=== PATIENT | female | born 1985 | race Caucasian/White ===

== ENCOUNTER 2016-06-17 11:46 | Emergency (ER) | payer MEDICARE, OTHER ==
--- NOTE | 2016-06-17 13:10 | ED ---
General Adult HPI - General Chief complaint: Extremity Injury, Upper Stated complaint: Finger injury/infection Time Seen by Provider: 06/17/16 13:00 Source: patient, RN notes reviewed Mode of arrival: ambulatory Limitations: no limitations - History of Present Illness Initial comments: This is a 30-year-old female presents with right index finger pain 4 days. Patient states she fell on her steps 4 days ago and her right index finger bent backwards. Patient states she's been having pain and noticed some increased erythema and purulent drainage 2 days ago. Patient states it also hurts to move the right index finger. Patient states she has a history of MRSA. Patient states she is up-to-date on her tetanus shot. Patient denies any chance of being . Patient denies any numbness/tingling/weakness. Patient denies any recent fever, chills, shortness breath, chest pain, abdominal pain, nausea/vomiting/diarrhea, back pain, hematuria, headache, or visual changes, or any other complaints. - Related Data Previous Rx's Medication Instructions Recorded Albuterol Inhaler [Ventolin Hfa 1 - 2 puff INHALATION Q4-6H PRN #1 10/15/14 Inhaler] inhaler Azithromycin [Zithromax Z-pack] 0 mg PO DIRECTED #6 tab 10/15/14 predniSONE 60 mg PO DAILY 5 Days 10/15/14 Clindamycin [Cleocin] 450 mg PO Q6H 10 Days 06/17/16 Ibuprofen [Motrin] 400 mg PO Q6HR 7 Days 06/17/16 traMADol HCL [Ultram] 50 mg PO Q6HR #12 tab 06/17/16 Allergies Allergy/AdvReac Type Severity Reaction Status Date / Time sulfamethoxazole Allergy Anaphylaxis Verified 06/17/16 12:03 [From ] trimethoprim [From ] Allergy Anaphylaxis Verified 06/17/16 12:03 Review of Systems ROS Statement: Those systems with pertinent positive or pertinent negative responses have been documented in the HPI. ROS Other: All systems not noted in ROS Statement are negative. Past Medical History Past Medical History: Seizure Disorder Additional Past Medical History / Comment(s): last seizure 8 years ago History of Any Multi-Drug Resistant Organisms: None Reported Past Surgical History: No Surgical Hx Reported Past Anesthesia/Blood Transfusion Reactions: No Reported Reaction Past Psychological History: No Psychological Hx Reported Smoking Status: Current every day smoker Past Alcohol Use History: None Reported Past Drug Use History: None Reported General Exam - General Exam Comments Initial Comments: General: The patient is awake and alert, in no distress, and does not appear acutely ill. Neck: The neck is supple, there is no tenderness or JVD. Cardiovascular: There is a regular rate and rhythm. No murmur, rub or gallop is appreciated. Respiratory: Lungs are clear to auscultation, respirations are non-labored, breath sounds are equal. No wheezes, stridor, rales, or rhonchi. Musculoskeletal: Tenderness to palpation to the distal aspect of the right second digit with localized erythema, swelling and purulent drainage coming from what appears to be a puncture wound. Patient has limited range of motion at the DIP joint of the right index finger due to pain and swelling. Patient has strength 5/5 and Sensation intact. Radial pulses 2+ bilaterally. Capillary refill is normal at less than 2 seconds. Neurological: A&O x 3. CN II-XII intact, There are no obvious motor or sensory deficits. Coordination appears grossly intact. Speech is normal. Skin: Skin is warm and dry and no rashes or lesions are noted. Psychiatric: Normal mood and affect. Limitations: no limitations Course Vital Signs 06/17/16 12:01 Temperature 97.8 F Pulse Rate 95 Respiratory 20 Rate Blood Pressure 143/77 O2 Sat by Pulse 100 Oximetry Procedures - Procedures Initial comment: Procedure: Incision and drainage The skin overlying the abscess was cleansed with normal saline and anesthetized with 1% lidocaine without epinephrine via digital block. A #11 scalpel was then used to incise the abscess. Some purulent material was then extracted from the lesion. Wound culture obtained. Gauze dressing placed on top , The patient tolerated the procedure well. Medical Decision Making - Medical Decision Making This is an 30 female presents with right index finger pain 4 days. On physical exam patient is afebrile EC. There is tenderness to palpation to the distal aspect of the right second digit with localized erythema, swelling and purulent drainage coming from what appears to be a puncture wound. Patient has limited range of motion at the DIP joint of the right index finger due to pain and swelling. Patient has strength 5/5 and Sensation intact. Radial pulses 2+ bilaterally. Capillary refill is normal at less than 2 seconds. An x-ray of the right hand was done and reviewed showing: #1 no acute osseous abnormality right hand. #2 minimal soft tissue injury tip of the index finger. Reported by Dr. Nieves. The skin overlying the abscess was cleansed with normal saline and anesthetized with 1% lidocaine without epinephrine via digital block. A #11 scalpel was then used to incise the abscess. Some purulent material was then extracted from the lesion. Wound culture obtained. Gauze dressing placed on top , The patient tolerated the procedure well. I discussed warm compresses and warm soaks with the patient. I discussed Motrin and Tylenol for pain. I discussed tramadol her breakthrough pain. I discussed that patient was put on a course of antibiotics. I discussed return parameters. Discussed that patient should follow up with PCP in one to 2 days or return to the EC for any worsening symptoms or for any further concerns. Patient was receptive to this plan and patient will be discharged home. Disposition Clinical Impression: Abscess Disposition: HOME SELF-CARE Condition: Good Instructions: Abscess (ED) Additional Instructions: Please finish entire course of antibiotics. Please use Motrin and Tylenol as needed for pain. Please use tramadol for breakthrough pain. Please use warm soaks and warm compresses to the finger and keep a gauze dressing over it. May apply Neosporin to the area as well.Please use medication as discussed. Please follow-up with family doctor in the next 2 days of symptoms have not improved. Please return to emergency room if the symptoms increase or worsen or for any other concerns. Prescriptions: Clindamycin [Cleocin] 450 mg PO Q6H 10 Days Ibuprofen [Motrin] 400 mg PO Q6HR 7 Days traMADol HCL [Ultram] 50 mg PO Q6HR #12 tab Referrals: Bernadette Coulter MD [Primary Care Provider] - 1-2 days
--- NOTE | 2016-06-17 13:26 | XR ---
EXAMINATION TYPE: XR hand complete RT DATE OF EXAM: 06/17/2016 1:21 PM COMPARISON: NONE HISTORY: Bent fingers backwards open wound second digit fall, pain TECHNIQUE: 3 views right hand FINDINGS: Soft tissue injuries over the tip of the index finger. Osseous structures appear intact. Sherri int spaces are preserved. Soft tissues otherwise normal. No radiopaque foreign bodies are evident. IMPRESSION: 1. No acute osseous abnormality right hand. 2. Minimal soft tissue injury tip of the index finger
[2016-06-17 14:22] VITALS: BP 126/71; PULSE 96; RESP 14; TEMP 97.3
== END 2016-06-17 14:22 | disposition home or self-care (01) ==
LOC: EC 11:46
DX: L02.511 Cutaneous abscess of right hand (principal); W10.9XXA Fall (on) (from) unspecified stairs and steps, initial encounter; F17.200 Nicotine dependence, unspecified, uncomplicated; Z88.2 Allergy status to sulfonamides; Z79.52 Long term (current) use of systemic steroids; Z86.14 Personal history of Methicillin resistant Staphylococcus aureus infection
CPT/HCPCS: 26010; 87070; 87077; 87186; 87205; 99283

== ENCOUNTER → 2017-10-31 | Outpatient (CLI) | payer MEDICARE, OTHER ==
[2017-10-31 10:18] LABS: Basophils # (A) 0.1 k/uL (0-0.2); Basophils % (A) 1 %; Eosinophils # (A) 0.3 k/uL (0-0.7); Eosinophils % (A) 4 %; HCT 45.7 % (34.0-46.0); HGB 15.1 gm/dL (11.4-16.0); Lymphocytes # (A) 2.8 k/uL (1.0-4.8); Lymphocytes % (A) 32 %; MCH 31.4 pg (25.0-35.0); MCHC 33.1 g/dL (31.0-37.0); MCV 94.9 fL (80.0-100.0); Mean Platelet Volume 7.1; Monocytes # (A) 0.5 k/uL (0-1.0); Monocytes % (A) 5 %; Neutrophils # (A) 5.1 k/uL (1.3-7.7); Neutrophils % (A) 58 %; Platelet Count 295 k/uL (150-450); RBC 4.81 m/uL (3.80-5.40); RDW 12.4 % (11.5-15.5); WBC 8.8 k/uL (3.8-10.6)
[2017-10-31 10:38] LABS: ALT 32 U/L (9-52); AST 20 U/L (14-36); Alkaline Phosphatase 62 U/L (38-126); Anion Gap 8 mmol/L; Blood Urea Nitrogen 4 mg/dL (7-17); Calcium 9.2 mg/dL (8.4-10.2); Carbon Dioxide 28 mmol/L (22-30); Chloride 102 mmol/L (98-107); Cholesterol 160 mg/dL (<200); Glucose 97 mg/dL (74-99); HDL Cholesterol 39 mg/dL (40-60); LDL Cholesterol,Calculated 92 mg/dL (0-99); Potassium 5.2 mmol/L (3.5-5.1); Sodium 138 mmol/L (137-145); Total Bilirubin 0.3 mg/dL (0.2-1.3); Total Protein 6.8 g/dL (6.3-8.2); Triglycerides 144 mg/dL (<150)
[2017-10-31 17:23] LABS: Vitamin D 25 Hydroxy 20.4 ng/mL (30.0-100.0)
[2017-10-31 19:05] LABS: Folate, Serum 3.9 ng/mL
[2017-10-31 20:19] LABS: Hemoglobin A1C 5.1 % (4.0-6.0)
== END | disposition home or self-care (01) ==
LOC: LABWHC1 09:52
PROVIDERS: ATTEND Nurse Practitioner Family
DX: J45.20 Mild intermittent asthma, uncomplicated (principal); E55.9 Vitamin D deficiency, unspecified
CPT/HCPCS: 36415; 80053; 80061; 82306; 82607; 82746; 83036; 84443; 85025

== ENCOUNTER 2018-12-17 09:23 | Emergency (ER) | payer OTHER, MEDICARE ==
[2018-12-17 09:31] VITALS: TEMP 98.1
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
[2018-12-17] MEDS: IPRATROPIUM-ALBUTEROL 3 ML NEB INHALATION STA (10:41)
--- NOTE | 2018-12-17 10:55 | XR ---
EXAMINATION TYPE: XR chest 2V DATE OF EXAM: 12/17/2018 COMPARISON: 10/15/2014 HISTORY: 33-year-old female with cough and pain TECHNIQUE: PA and lateral views FINDINGS: The cardiomediastinal silhouette, aorta, and pulmonary vasculature are within normal limits. Lungs an d pleural spaces are clear. IMPRESSION: No acute cardiopulmonary process.
--- NOTE | 2018-12-17 10:57 | XR ---
EXAMINATION TYPE: XR cervical spine comp DATE OF EXAM: 12/17/2018 COMPARISON: None HISTORY: 33-year-old female with pain TECHNIQUE: 5 views FINDINGS: The predental space widening or prevertebral soft tissue swelling. Mild endplate spondylosis througho ut. Facet and mild uncovertebral joint arthropathy mid to lower cervical spine. Alignment is maintain ed. Limited assessment of the right-sided neuroforamen due to the degree of obliquity. Mild bony neur oforaminal narrowing on the left at C3-C4. Limited odontoid views. IMPRESSION: Mild multilevel spondylotic change. No prevertebral soft tissue swelling or malalignment.
[2018-12-17 11:24] VITALS: BP 132/78; PULSE 76; RESP 18
== END 2018-12-17 11:22 | disposition home or self-care (01) ==
LOC: EC 09:23
DX: S13.4XXA Sprain of ligaments of cervical spine, initial encounter (principal); F17.200 Nicotine dependence, unspecified, uncomplicated; Z88.2 Allergy status to sulfonamides; Z88.1 Allergy status to other antibiotic agents; Z86.14 Personal history of Methicillin resistant Staphylococcus aureus infection; V43.62XA Car passenger injured in collision with other type car in traffic accident, initial encounter; Y92.009 Unspecified place in unspecified non-institutional (private) residence as the place of occurrence of the external cause
CPT/HCPCS: 71046; 72050; 94640; 99284

== ENCOUNTER 2020-01-24 11:24 | Emergency (ER) | payer MEDICARE, OTHER ==
[2020-01-24 11:37] VITALS: BP 124/90; PULSE 87; RESP 18; TEMP 98.5
--- NOTE | 2020-01-24 11:57 | ED ---
General Adult HPI - General Chief complaint: ENT Stated complaint: Cough, Sore Throat Time Seen by Provider: 01/24/20 11:34 Source: patient, RN notes reviewed Mode of arrival: ambulatory Limitations: no limitations - History of Present Illness Initial comments: 34-year-old female without medical problems presents to the emergency room for a chief complaint of sore throat and cough. Patient reports that this started today. Patient states that her daughter has had a cough and sore throat for about 3 days. States cough is dry. Patient is a had any fevers or chills. No known coronavirus exposures.patient denies shortness of breath. Denies chest pain. Patient has no other complaints at this time including shortness of breath, chest pain, abdominal pain, nausea or vomiting, headache, or visual changes. - Related Data Previous Rx's Medication Instructions Recorded Albuterol Inhaler (Mhu) [Ventolin 1 - 2 puff INHALATION Q4-6H PRN #1 10/15/14 Hfa Inhaler (Mhu)] inhaler Azithromycin [Zithromax Z-pack (6 0 mg PO DIRECTED #6 tab 10/15/14 tabs)] predniSONE [Deltasone] 60 mg PO DAILY 5 Days tab 10/15/14 Clindamycin [Cleocin] 450 mg PO Q6H 10 Days capsule 06/17/16 Ibuprofen [Motrin] 400 mg PO Q6HR 7 Days tab 06/17/16 traMADol HCL [Ultram] 50 mg PO Q6HR #12 tab 06/17/16 Cyclobenzaprine [Flexeril] 5 mg PO TID PRN #15 tablet 12/17/18 Ibuprofen [Motrin] 600 mg PO Q8HR PRN #30 tab 12/17/18 Allergies Allergy/AdvReac Type Severity Reaction Status Date / Time sulfamethoxazole Allergy Anaphylaxis Verified 01/24/20 11:37 [From ] trimethoprim [From ] Allergy Anaphylaxis Verified 01/24/20 11:37 Review of Systems ROS Statement: Those systems with pertinent positive or pertinent negative responses have been documented in the HPI. ROS Other: All systems not noted in ROS Statement are negative. Past Medical History Past Medical History: Seizure Disorder Additional Past Medical History / Comment(s): last seizure 8 years ago History of Any Multi-Drug Resistant Organisms: MRSA Date of last positivie culture/infection: 06/17/16 MDRO Source:: Right fourth Finger Past Surgical History: No Surgical Hx Reported Past Anesthesia/Blood Transfusion Reactions: No Reported Reaction Past Psychological History: No Psychological Hx Reported Smoking Status: Current every day smoker Past Alcohol Use History: None Reported Past Drug Use History: None Reported General Exam Limitations: no limitations General appearance: alert, in no apparent distress Head exam: Present: atraumatic, normocephalic, normal inspection Eye exam: Present: normal appearance, PERRL, EOMI. Absent: scleral icterus, conjunctival injection, periorbital swelling ENT exam: Present: normal exam, normal oropharynx (Uvula midline, no tonsillar exudates bilaterally), mucous membranes moist, TM's normal bilaterally, normal external ear exam Neck exam: Present: normal inspection, full ROM. Absent: tenderness, meningismus, lymphadenopathy Respiratory exam: Present: normal lung sounds bilaterally. Absent: respiratory distress, wheezes, rales, rhonchi, stridor Cardiovascular Exam: Present: regular rate, normal rhythm, normal heart sounds. Absent: systolic murmur, diastolic murmur, rubs, gallop, clicks Course Vital Signs 01/24/20 11:34 Temperature 98.5 F Pulse Rate 87 Respiratory 18 Rate Blood Pressure 124/90 O2 Sat by Pulse 99 Oximetry Medical Decision Making - Medical Decision Making Vitals are stable. Patient is well-appearing. HPI and physical exam as documented. Strep is negative. Chest x-ray shows no acute process. Bowers virus pending. Patient likely has viral upper respiratory infection. Recommend she follow up with her doctor. Recommend she return here for any worsening symptoms. - Lab Data Lab Results 01/24/20 Range/Units 12:29 Group A Strep Rapid Negative (Negative) Disposition Clinical Impression: Sore throat, Cough Disposition: HOME SELF-CARE Condition: Good Instructions (If sedation given, give patient instructions): Upper Respiratory Infection (ED) Additional Instructions: Please take [id number] cold and flu medications. Please follow-up on coronavirus results. Follow-up with your doctor in one to 2 days. Return to the emergency room for any worsening symptoms. Is patient prescribed a controlled substance at d/c from ED?: No Referrals: Bernadette Coulter MD [Primary Care Provider] - 1-2 days Time of Disposition: 12:54
--- NOTE | 2020-01-24 12:41 | XR ---
EXAMINATION TYPE: XR chest 2V DATE OF EXAM: 01/24/2020 CLINICAL HISTORY: Cough, fever TECHNIQUE: Frontal and lateral views of the chest are obtained. COMPARISON: Chest radiograph 12/17/2018 FINDINGS: The cardiomediastinal silhouette is within normal limits for size. Pulmonary vasculature i s normal. There is no focal air space opacity, pleural effusion, or pneumothorax seen. The osseous st ructures are intact. IMPRESSION: No acute cardiopulmonary process.
== END 2020-01-24 13:08 | disposition home or self-care (01) ==
LOC: EC 11:24
DX: J02.9 Acute pharyngitis, unspecified (principal); Z20.828 Contact with and (suspected) exposure to other viral communicable diseases; F17.200 Nicotine dependence, unspecified, uncomplicated; Z88.2 Allergy status to sulfonamides; Z88.1 Allergy status to other antibiotic agents; Z86.14 Personal history of Methicillin resistant Staphylococcus aureus infection
CPT/HCPCS: 87081; 87430; 71046; 99283; U0003

== ENCOUNTER 2021-04-26 16:34 | Emergency (ER) | payer MEDICARE, OTHER ==
[2021-04-26 16:54] VITALS: BP 177/83; PULSE 79; RESP 18; TEMP 98.1
--- NOTE | 2021-04-26 17:57 | ED ---
URI HPI - General Chief Complaint: Upper Respiratory Infection Stated Complaint: Cough,Congestion Time Seen by Provider: 04/26/21 17:43 Source: patient Mode of arrival: ambulatory Limitations: no limitations - History of Present Illness Initial Comments: 35-year-old female patient presents to the emergency department today for evaluation of cough and nasal congestion. States symptoms started 2 days ago. She states her father was recently diagnosed with COVID-19 and they live in the same home. She denies any chest pain or shortness of breath. Denies sputum production with her cough. Denies any wheezing. Denies nausea, vomiting, or diarrhea. States that she has felt feverish and has never checked her temperature. She denies any chronic medical conditions. Has not been taking any medication for her symptoms. Denies any chance of . - Related Data Previous Rx's Medication Instructions Recorded Albuterol Inhaler (Mhu) [Ventolin 1 - 2 puff INHALATION Q4-6H PRN #1 10/15/14 Hfa Inhaler (Mhu)] inhaler Azithromycin [Zithromax Z-pack (6 0 mg PO DIRECTED #6 tab 10/15/14 tabs)] predniSONE [Deltasone] 60 mg PO DAILY 5 Days tab 10/15/14 Clindamycin [Cleocin] 450 mg PO Q6H 10 Days capsule 06/17/16 Ibuprofen [Motrin] 400 mg PO Q6HR 7 Days tab 06/17/16 traMADol HCL [Ultram] 50 mg PO Q6HR #12 tab 06/17/16 Cyclobenzaprine [Flexeril] 5 mg PO TID PRN #15 tablet 12/17/18 Ibuprofen [Motrin] 600 mg PO Q8HR PRN #30 tab 12/17/18 Albuterol Sulfate [Proair Hfa] 1 - 2 puff INHALATION Q6HR PRN 04/26/21 #8.5 gm Ibuprofen [Motrin] 600 mg PO Q8HR PRN #30 tab 04/26/21 guaiFENesin-DM 600/30MG [Mucinex 2 each PO Q12HR PRN #20 tab 04/26/21 Dm] Allergies Allergy/AdvReac Type Severity Reaction Status Date / Time sulfamethoxazole Allergy Anaphylaxis Verified 04/26/21 16:54 [From ] trimethoprim [From ] Allergy Anaphylaxis Verified 04/26/21 16:54 Review of Systems ROS Statement: Those systems with pertinent positive or pertinent negative responses have been documented in the HPI. ROS Other: All systems not noted in ROS Statement are negative. Past Medical History Past Medical History: Seizure Disorder Additional Past Medical History / Comment(s): last seizure 8 years ago History of Any Multi-Drug Resistant Organisms: MRSA Date of last positivie culture/infection: 06/17/16 MDRO Source:: Right fourth Finger Past Surgical History: No Surgical Hx Reported Past Anesthesia/Blood Transfusion Reactions: No Reported Reaction Past Psychological History: No Psychological Hx Reported Smoking Status: Current every day smoker Past Alcohol Use History: None Reported Past Drug Use History: None Reported General Exam Limitations: no limitations General appearance: alert, in no apparent distress, other (This is a well- developed, well-nourished adult female patient in no acute distress.) Eye exam: Present: normal appearance, PERRL, EOMI. Absent: scleral icterus, conjunctival injection, periorbital swelling ENT exam: Present: normal exam, normal oropharynx, mucous membranes moist Respiratory exam: Present: normal lung sounds bilaterally. Absent: respiratory distress, wheezes, rales, rhonchi, stridor Cardiovascular Exam: Present: regular rate, normal rhythm, normal heart sounds. Absent: systolic murmur, diastolic murmur, rubs, gallop, clicks GI/Abdominal exam: Present: soft, normal bowel sounds. Absent: distended, tenderness, guarding, rebound, rigid Neurological exam: Present: alert, oriented X3, CN II-XII intact Psychiatric exam: Present: normal affect, normal mood Skin exam: Present: warm, dry, intact, normal color. Absent: rash Course Vital Signs 04/26/21 16:52 Temperature 98.1 F Pulse Rate 79 Respiratory 18 Rate Blood Pressure 177/83 O2 Sat by Pulse 97 Oximetry Medical Decision Making - Medical Decision Making 35-year-old female patient presents to the emergency department today for evaluation of upper respiratory symptoms after exposure to COVID-19. Physical examination is unremarkable. Lungs clear to auscultation with good air movement. Patient is breathing without difficulty. She did test positive for COVID-19. We did discuss supportive care. She'll be given prescriptions for Pro Air, Mucinex DM, and her Profen. She is instructed to follow-up with her primary care physician for recheck in 1-2 days. Return parameters were discussed in detail. She verbalizes understanding and agrees with this plan. My attending is Dr. Sahni. - Lab Data Lab Results 04/26/21 Range/Units 16:56 Coronavirus (PCR) Detected A (Not Detectd) Disposition Clinical Impression: COVID-19 Disposition: HOME SELF-CARE Condition: Good Instructions (If sedation given, give patient instructions): Coronavirus Disease 2019 (COVID-19) Additional Instructions: Tips to help you feel better: -Maintain adequate fluid intake - especially water. -Rest, you are healing your body will require extra sleep. -Eat even if you do not feel like it - broth, jello, toast are fine if you cannot eat full meals. -Take tylenol and motrin alternating (if you have no allergies or have not been instructed to avoid these medications) to help with body aches and fevers. -Obtain over the counter vitamin C, zinc, and vitamin D3. -Take medications as prescribed. Follow-up with your primary care physician for recheck in 1-2 days. Return for any new, worsening, or concerning symptoms. Prescriptions: Ibuprofen [Motrin] 600 mg PO Q8HR PRN #30 tab PRN Reason: Pain guaiFENesin-DM 600/30MG [Mucinex Dm] 2 each PO Q12HR PRN #20 tab PRN Reason: Cough Albuterol Sulfate [Proair Hfa] 1 - 2 puff INHALATION Q6HR PRN #8.5 gm PRN Reason: Shortness Of Breath Is patient prescribed a controlled substance at d/c from ED?: No Referrals: Bernadette Coulter MD [Primary Care Provider] - 1-2 days Time of Disposition: 17:56
== END 2021-04-26 19:04 | disposition home or self-care (01) ==
LOC: EC 16:34
DX: U07.1 COVID-19 (principal); F17.200 Nicotine dependence, unspecified, uncomplicated; Z88.2 Allergy status to sulfonamides
CPT/HCPCS: 87635; 99283

== ENCOUNTER 2023-03-19 14:41 | Emergency (ER) | payer MEDICARE, OTHER ==
--- NOTE | 2023-03-19 14:58 | ED ---
General Adult HPI - General Source: patient, RN notes reviewed Mode of arrival: ambulatory Limitations: no limitations <Shamar Zimmerman - Last Filed: 03/19/23 14:57> <Michell Bills - Last Filed: 03/19/23 19:51> - General Stated complaint: Vomiting Time Seen by Provider: 03/19/23 14:57 - History of Present Illness Initial comments: 37-year-old female presents emergency Department with chief complaint of congestion nausea symptoms symptoms ongoing for last on and off for last week. Patient's daughter has similar symptoms. (Shamar Zimmerman) 37-year-old female presents emergency Department with chief complaint of congestion, sore throat 3 days. She states that her daughter has the same symptoms. Her symptoms started after her daughters. She admits to nausea and diarrhea. (Michell Bills) - Related Data Previous Rx's Medication Instructions Recorded Albuterol Inhaler [Ventolin Hfa 1 - 2 puff INHALATION Q4-6H PRN #1 10/15/14 Inhaler] inhaler Azithromycin [Zithromax Z-pack (6 0 mg PO DIRECTED #6 tab 10/15/14 tabs)] predniSONE [Deltasone] 60 mg PO DAILY 5 Days tab 10/15/14 Clindamycin [Cleocin] 450 mg PO Q6H 10 Days capsule 06/17/16 Ibuprofen [Motrin] 400 mg PO Q6HR 7 Days tab 06/17/16 traMADol HCL [Ultram] 50 mg PO Q6HR #12 tab 06/17/16 Cyclobenzaprine [Flexeril] 5 mg PO TID PRN #15 tablet 12/17/18 Ibuprofen [Motrin] 600 mg PO Q8HR PRN #30 tab 12/17/18 Albuterol Sulfate [Proair Hfa] 1 - 2 puff INHALATION Q6HR PRN 04/26/21 #8.5 gm Ibuprofen [Motrin] 600 mg PO Q8HR PRN #30 tab 04/26/21 guaiFENesin-DM 600/30MG [Mucinex 2 each PO Q12HR PRN #20 tab 04/26/21 Dm] Amoxicillin 875 mg PO Q12HR #14 tablet 03/19/23 Allergies Allergy/AdvReac Type Severity Reaction Status Date / Time sulfamethoxazole Allergy Anaphylaxis Verified 03/19/23 15:10 [From ] trimethoprim [From ] Allergy Anaphylaxis Verified 03/19/23 15:10 Review of Systems ROS Other: All systems not noted in ROS Statement are negative. <Shamar Zimmerman - Last Filed: 03/19/23 14:57> ROS Other: All systems not noted in ROS Statement are negative. <Michell Bills - Last Filed: 03/19/23 19:51> ROS Statement: Those systems with pertinent positive or pertinent negative responses have been documented in the HPI. Past Medical History Past Medical History: Seizure Disorder Additional Past Medical History / Comment(s): last seizure 8 years ago History of Any Multi-Drug Resistant Organisms: MRSA Date of last positivie culture/infection: 06/17/16 MDRO Source:: Right fourth Finger Past Surgical History: No Surgical Hx Reported Past Anesthesia/Blood Transfusion Reactions: No Reported Reaction Past Psychological History: No Psychological Hx Reported Smoking Status: Current every day smoker Past Alcohol Use History: None Reported Past Drug Use History: None Reported <Shamar Zimmerman - Last Filed: 03/19/23 14:57> General Exam General appearance: alert, in no apparent distress Head exam: Present: atraumatic, normocephalic, normal inspection <Shamar Zimmerman - Last Filed: 03/19/23 14:57> Limitations: no limitations General appearance: alert, in no apparent distress Head exam: Present: atraumatic, normocephalic, normal inspection Eye exam: Present: normal appearance, PERRL, EOMI. Absent: scleral icterus, conjunctival injection, periorbital swelling ENT exam: Present: mucous membranes moist, TM's normal bilaterally, normal external ear exam. Absent: normal oropharynx Neck exam: Present: normal inspection. Absent: tenderness, meningismus, lymphadenopathy Respiratory exam: Present: wheezes. Absent: normal lung sounds bilaterally, respiratory distress, rales, rhonchi, stridor Cardiovascular Exam: Present: regular rate, normal rhythm, normal heart sounds. Absent: systolic murmur, diastolic murmur, rubs, gallop, clicks Neurological exam: Present: alert, oriented X3 Psychiatric exam: Present: normal affect, normal mood Skin exam: Present: warm, dry, intact, normal color. Absent: rash <Michell Bills - Last Filed: 03/19/23 19:51> - General Exam Comments Initial Comments: Visual Physical Exam Vital signs reviewed General: Well-appearing, nontoxic, no acute distress. Head: Normocephalic, atraumatic Eyes: PERRLA, EOMI ENT: Airway patent Chest: Nonlabored breathing Skin: No visual rash, normal skin tone Neuro: Alert and oriented 3 Musculoskeletal: No gross abnormalities (Shamar Zimmerman) Course Vital Signs 03/19/23 03/19/23 15:10 19:17 Temperature 98.4 F 98.9 F Pulse Rate 85 76 Respiratory 16 16 Rate Blood Pressure 122/71 136/82 O2 Sat by Pulse 97 97 Oximetry Medical Decision Making <Shamar Zimmerman - Last Filed: 03/19/23 14:57> <Michell Bills - Last Filed: 03/19/23 19:51> - Medical Decision Making I completed the quick note portion of this chart signed Shamar Zimmerman PA-C (Shamar Zimmerman) Was pt. sent in by a medical professional or institution (Dr. PA, CONTINUING EDUCATION DIRECTOR, urgent care, hospital, or fdc...) When possible be specific @ -No Did you speak to anyone other than the patient for history (EMS, parent, family, police, friend...)? What history was obtained from this source @ -No Did you review nursing and triage notes (agree or disagree)? Why? @ -I reviewed and agree with nursing and triage notes Were old charts reviewed (outside hosp., previous admission, EMS record, old EK G, old radiological studies, urgent care reports/EKG's, fdc records)? Report findings @ -No old charts were reviewed Differential Diagnosis (chest pain, altered mental status, abdominal pain women, abdominal pain men, vaginal bleeding, weakness, fever, dyspnea, syncope, headache, dizziness, GI bleed, back pain, seizure, CVA, palpatations, mental health, musculoskeletal)? @ -Covid, influenza, RSV, strep pharyngitis, pneumonia, viral URI, this list is not all-inclusive EKG interpreted by me (3pts min.). @ -None X-rays interpreted by me (1pt min.). @ -Chest x-ray shows no acute process CT interpreted by me (1pt min.). @ -None done U/S interpreted by me (1pt. min.). @ -None done What testing was considered but not performed or refused? (CT, X-rays, U/S, l abs)? Why? @ -None What meds were considered but not given or refused? Why? @ -None Did you discuss the management of the patient with other professionals (professionals i.e. , PA, CONTINUING EDUCATION DIRECTOR, lab, RT, psych nurse, high school social studies tutor, auto damage trainee, teacher, infantry officer, field nurse case manager)? Give summary @ -No Was smoking cessation discussed for >3mins.? @ -No Was critical care preformed (if so, how long)? @ -No Were there social determinants of health that impacted care today? How? (Homelessness, low income, unemployed, alcoholism, drug addiction, transportation, low edu. Level, literacy, decrease access to med. care, long term, rehab)? @ -No Was there de-escalation of care discussed even if they declined (Discuss DNR or withdrawal of care, Hospice)? DNR status @ -No What co-morbidities impacted this encounter? (DM, HTN, Smoking, COPD, CAD, Cancer, CVA, ARF, Chemo, Hep., AIDS, mental health diagnosis, sleep apnea, morbid obesity)? @ -None Was patient admitted / discharged? Hospital course, mention meds given and route, prescriptions, significant lab abnormalities, going to OR and other pertinent info. @ -Discharged. Patient presented to the emergency department for chief complaint of sore throat, congestion, nausea, diarrhea 2-3 days. She states her daughter has the same symptoms. Patient's daughter had positive strep test today. Covid, influenza, RSV, strep negative. Chest x-ray shows no acute process. Patient will be treated for a strep pharyngitis as her daughter has the same symptoms and history positive. Prescription for amoxicillin sent to the pharmacy for patient. Patient understanding and agreeable with discharge plan. Patient stable at time of discharge. Case discussed with Dr. Martino Undiagnosed new problem with uncertain prognosis? @ -No Drug Therapy requiring intensive monitoring for toxicity (Heparin, Nitro, Insulin, Cardizem)? @ -No Were any procedures done? @ -No Diagnosis/symptom? @ -pharyngitis Acute, or Chronic, or Acute on Chronic? @ -acute Uncomplicated (without systemic symptoms) or Complicated (systemic symptoms)? @ -uncomplicated Side effects of treatment? @ -No Exacerbation, Progression, or Severe Exacerbation? @ -No Poses a threat to life or bodily function? How? (Chest pain, [place], [place], pneumonia, PE, COPD, DKA, ARF, appy, cholecystitis, CVA, Diverticulitis, Homicidal, Suicidal, threat to staff... and all critical care pts) @ -No (Michell Bills) - Lab Data Lab Results 03/19/23 03/19/23 Range/Units 15:16 17:42 Influenza Type A (PCR) Not Detected (Not Detectd) Influenza Type B (PCR) Not Detected (Not Detectd) RSV (PCR) Not Detected (Not Detectd) SARS-CoV-2 (PCR) Not Detected (Not Detectd) Group A Strep (PCR) NOT DETECTED (Not Detectd) Disposition <Shamar Zimmerman - Last Filed: 03/19/23 14:57> Is patient prescribed a controlled substance at d/c from ED?: No <Michell Bills - Last Filed: 03/19/23 19:51> Clinical Impression: Pharyngitis Disposition: HOME SELF-CARE Condition: Stable Instructions (If sedation given, give patient instructions): Pharyngitis (ED) Additional Instructions: Please tack picker antibiotics and take to completion. Follow up with your primary care provider. Return to the emergency department for new or worsening symptoms. Prescriptions: Amoxicillin 875 mg PO Q12HR #14 tablet Referrals: None,Stated [Primary Care Provider] - 1-2 days
[2023-03-19 15:26] VITALS: RESP 16
--- NOTE | 2023-03-19 18:34 | XR ---
EXAMINATION: XR chest 2V: 03/19/2023 5:48 PM CLINICAL INDICATION: cough, fever TECHNIQUE: Departmental protocol COMPARISON: None FINDINGS: The overlying soft tissues are prominent. The lungs appear to be clear, as seen. The pleural spaces are negative. The cardiac silhouette is not enlarged. The remainder of the mediastinal silhouette is unremarkable. The skeletal structures and soft tissues are negative for acute findings. IMPRESSION: No acute radiographic process.
[2023-03-19 19:30] VITALS: BP 136/82; PULSE 76; TEMP 98.9
== END 2023-03-19 19:18 | disposition home or self-care (01) ==
LOC: EC 14:41
DX: J02.9 Acute pharyngitis, unspecified (principal); F17.200 Nicotine dependence, unspecified, uncomplicated; Z88.2 Allergy status to sulfonamides; Z20.822 Contact with and (suspected) exposure to COVID-19
CPT/HCPCS: 71046; 87636; 87651; 99284

== ENCOUNTER 2023-10-15 10:34 | Emergency (ER) | payer MEDICARE, OTHER ==
[2023-10-15 10:40] VITALS: RESP 18
[2023-10-15] MEDS: HYDROmorphone 1 MG/ML 1 ML SYRINGE IM STA (11:05)
[2023-10-15] MEDS: LIDOCAINE 1% INJ 10MG/ML (20 ML MDV) SQ ONE (11:05)
--- NOTE | 2023-10-15 11:59 | ED ---
General Adult HPI - General Chief complaint: Skin/Abscess/Foreign Body Stated complaint: Urogenital Time Seen by Provider: 10/15/23 10:41 Source: patient, RN notes reviewed Mode of arrival: ambulatory Limitations: no limitations - History of Present Illness Initial comments: 38-year-old female presents to the emergency department for evaluation of swell ing of left labial area. She notes that it has been present for around 4 days but has gotten significantly worse today. She states that it is painful with movement and with wiping. She denies any history of this. She denies fever, chills. Denies any vaginal discharge, urinary symptoms. - Related Data Previous Rx's Medication Instructions Recorded Albuterol Inhaler [Ventolin Hfa 1 - 2 puff INHALATION Q4-6H PRN #1 10/15/14 Inhaler] inhaler Azithromycin [Zithromax Z-pack (6 0 mg PO DIRECTED #6 tab 10/15/14 tabs)] predniSONE [Deltasone] 60 mg PO DAILY 5 Days tab 10/15/14 Clindamycin [Cleocin] 450 mg PO Q6H 10 Days capsule 06/17/16 Ibuprofen [Motrin] 400 mg PO Q6HR 7 Days tab 06/17/16 traMADol HCL [Ultram] 50 mg PO Q6HR #12 tab 06/17/16 Cyclobenzaprine [Flexeril] 5 mg PO TID PRN #15 tablet 12/17/18 Ibuprofen [Motrin] 600 mg PO Q8HR PRN #30 tab 12/17/18 Albuterol Sulfate [Proair Hfa] 1 - 2 puff INHALATION Q6HR PRN 04/26/21 #8.5 gm Ibuprofen [Motrin] 600 mg PO Q8HR PRN #30 tab 04/26/21 guaiFENesin-DM 600/30MG [Mucinex 2 each PO Q12HR PRN #20 tab 04/26/21 Dm] Amoxicillin 875 mg PO Q12HR #14 tablet 03/19/23 ceFIXime [Suprax] 400 mg PO DAILY #7 capsule 10/15/23 clindamycin HCL 300 mg PO QID #28 cap 10/15/23 Allergies Allergy/AdvReac Type Severity Reaction Status Date / Time sulfamethoxazole Allergy Anaphylaxis Verified 10/15/23 10:40 [From ] trimethoprim [From ] Allergy Anaphylaxis Verified 10/15/23 10:40 Review of Systems ROS Statement: Those systems with pertinent positive or pertinent negative responses have been documented in the HPI. ROS Other: All systems not noted in ROS Statement are negative. Past Medical History Past Medical History: Seizure Disorder Additional Past Medical History / Comment(s): last seizure 8 years ago History of Any Multi-Drug Resistant Organisms: MRSA Date of last positivie culture/infection: 06/17/16 MDRO Source:: Right fourth Finger Past Surgical History: No Surgical Hx Reported Past Anesthesia/Blood Transfusion Reactions: No Reported Reaction Past Psychological History: No Psychological Hx Reported Smoking Status: Current every day smoker Past Alcohol Use History: None Reported Past Drug Use History: None Reported General Exam Limitations: no limitations General appearance: alert, in no apparent distress Head exam: Present: atraumatic, normocephalic, normal inspection Respiratory exam: Present: normal lung sounds bilaterally. Absent: respiratory distress, wheezes, rales, rhonchi, stridor Cardiovascular Exam: Present: regular rate, normal rhythm, normal heart sounds. Absent: systolic murmur, diastolic murmur, rubs, gallop, clicks External exam: Present: swelling (left vulvar) Extremities exam: Present: normal inspection, full ROM, normal capillary refill. Absent: tenderness, pedal edema, joint swelling, calf tenderness Back exam: Present: normal inspection Neurological exam: Present: alert, oriented X3 Psychiatric exam: Present: normal affect, normal mood Skin exam: Present: warm, dry, intact, normal color. Absent: rash Course Vital Signs 10/15/23 10:35 Temperature 98.2 F Pulse Rate 93 Respiratory 18 Rate Blood Pressure 129/90 O2 Sat by Pulse 98 Oximetry Procedures - Incision & Drainage Consent Obtained: verbal consent Site: vulva/vagina Anesthetic Used: lidocaine 1% I&D Cleaning Method: Alcohol Wipe, Betadine Scalpel Used: #11 I&D Drainage Obtained: Blood Insertion of drain: No Patient Tolerated Procedure: well, no complications Medical Decision Making - Medical Decision Making Was pt. sent in by a medical professional or institution (, PA, SHIPPER RECEIVER, urgent care, hospital, or [place] [facility] facility...) When possible be specific @ -No Did you speak to anyone other than the patient for history (EMS, parent, family, police, friend...)? What history was obtained from this source @ -No Did you review nursing and triage notes (agree or disagree)? Why? @ -I reviewed and agree with nursing and triage notes Were old charts reviewed (outside hosp., previous admission, EMS record, old EKG, old radiological studies, urgent care reports/EKG's, [place] [facility] facility records)? Report findings @ -No old charts were reviewed Differential Diagnosis (chest pain, altered mental status, abdominal pain women, abdominal pain men, vaginal bleeding, weakness, fever, dyspnea, syncope, headache, dizziness, GI bleed, back pain, seizure, CVA, palpatations, mental health, musculoskeletal)? @ -bartholin cyst, abscess, vulvar cancer, this list is not all inclusive EKG interpreted by me (3pts min.). @ -None X-rays interpreted by me (1pt min.). @ -None done CT interpreted by me (1pt min.). @ -None done U/S interpreted by me (1pt. min.). @ -None done What testing was considered but not performed or refused? (CT, X-rays, U/S, labs)? Why? @ -None What meds were considered but not given or refused? Why? @ -None Did you discuss the management of the patient with other professionals (professionals i.e. , PA, SHIPPER RECEIVER, lab, RT, psych nurse, social services designee, nsh teacher, teacher, chief contract officer, case aide)? Give summary @ -No Was smoking cessation discussed for >3mins.? @ -No Was critical care preformed (if so, how long)? @ -No Were there social determinants of health that impacted care today? How? (Homelessness, low income, unemployed, alcoholism, drug addiction, rodriguez sportation, low edu. Level, literacy, decrease access to med. care, alf, rehab)? @ -No Was there de-escalation of care discussed even if they declined (Discuss DNR or withdrawal of care, Hospice)? DNR status @ -No What co-morbidities impacted this encounter? (DM, HTN, Smoking, COPD, CAD, Cancer, CVA, ARF, Chemo, Hep., AIDS, mental health diagnosis, sleep apnea, morbid obesity)? @ -None Was patient admitted / discharged? Hospital course, mention meds given and route, prescriptions, significant lab abnormalities, going to OR and other pertinent info. @ -Discharged. Patient presented to the emergency department for evaluation of vulvar swelling x 4 days. Multiple small cysts surrounding the labia and what appears to be a Bartholin cyst. Attempted I&D. Patient advised to follow-up with gynecology and prescription sent to patient's pharmacy for antibiotics. Patient is understanding and agreeable with this plan. Patient stable at time of discharge. Case discussed with Dr. Barrientos Undiagnosed new problem with uncertain prognosis? @ -No Drug Therapy requiring intensive monitoring for toxicity (Heparin, Nitro, Insulin, Cardizem)? @ -No Were any procedures done? @ -I&D Diagnosis/symptom? @ -bartholin abscess Acute, or Chronic, or Acute on Chronic? @ -Acute Uncomplicated (without systemic symptoms) or Complicated (systemic symptoms)? @ -Uncomplicated Side effects of treatment? @ -No Exacerbation, Progression, or Severe Exacerbation? @ -No Poses a threat to life or bodily function? How? (Chest pain, [place], [place], pneumonia, PE, COPD, DKA, ARF, appy, cholecystitis, CVA, Diverticulitis, Homicidal, Suicidal, threat to staff... and all critical care pts) @ -No Disposition Clinical Impression: Bartholin's gland abscess Disposition: HOME SELF-CARE Condition: Stable Instructions (If sedation given, give patient instructions): Abscess Incision and Drainage (ED) Additional Instructions: Please follow up with gynecology. fruit grading supervisor antibiotics and take to completion. Return to the emergency department for new or worsening symptoms. Prescriptions: clindamycin HCL 300 mg PO QID #28 cap ceFIXime [Suprax] 400 mg PO DAILY #7 capsule Is patient prescribed a controlled substance at d/c from ED?: No Referrals: None,Stated [Primary Care Provider] - 1-2 days Al Albert MD [STAFF PHYSICIAN] - 1-2 days Roxanne Hanley DO [Doctor of Osteopathic Medicine] - 1-2 days Anabela Funk DO [Doctor of Osteopathic Medicine] - 1-2 days
[2023-10-15 12:55] VITALS: BP 132/86; PULSE 86; TEMP 98.1
== END 2023-10-15 12:26 | disposition home or self-care (01) ==
LOC: EC 10:34
DX: N75.1 Abscess of Bartholin's gland (principal); F17.200 Nicotine dependence, unspecified, uncomplicated; Z88.2 Allergy status to sulfonamides; Z88.1 Allergy status to other antibiotic agents
CPT/HCPCS: 56420; 99283; 96372; J2001; J1170

== ENCOUNTER 2024-02-13 15:51 | Emergency (ER) | payer MEDICARE, OTHER ==
[2024-02-13 15:59] VITALS: BP 135/78; PULSE 89; RESP 18; TEMP 97.5
--- NOTE | 2024-02-13 16:07 | ED ---
Headache HPI - General Chief Complaint: Headache Stated Complaint: poss seizure, headache Time Seen by Provider: 02/13/24 16:05 Source: patient, RN notes reviewed Mode of arrival: ambulatory Limitations: no limitations - History of Present Illness Initial Comments: 38-year-old female with a previous medical history of grand mal seizures not currently on medication presenting to the emergency department chief complaint of headache over the past 2 days. describes the pain as a throbbing and pressure type sensation. denies dizziness, lightheadedness, photophobia, tinnitus, weakness. In addition, patient states that she believes she 'felt like she was going to have a seizure earlier today' with no reported tremors, loss of bladder continence, or tongue bitting, and no symptoms of post-ictal period. Patient denies nausea, vomiting, fevers, chills, cough, rhinorrhea or congestion. She denies abdominal pain, bladder or bowel changes. - Related Data Previous Rx's Medication Instructions Recorded Albuterol Inhaler [Ventolin Hfa 1 - 2 puff INHALATION Q4-6H PRN #1 10/15/14 Inhaler] inhaler Azithromycin [Zithromax Z-pack (6 0 mg PO DIRECTED #6 tab 10/15/14 tabs)] predniSONE [Deltasone] 60 mg PO DAILY 5 Days tab 10/15/14 Clindamycin [Cleocin] 450 mg PO Q6H 10 Days capsule 06/17/16 Ibuprofen [Motrin] 400 mg PO Q6HR 7 Days tab 06/17/16 traMADol HCL [Ultram] 50 mg PO Q6HR #12 tab 06/17/16 Cyclobenzaprine [Flexeril] 5 mg PO TID PRN #15 tablet 12/17/18 Ibuprofen [Motrin] 600 mg PO Q8HR PRN #30 tab 12/17/18 Albuterol Sulfate [Proair Hfa] 1 - 2 puff INHALATION Q6HR PRN 04/26/21 #8.5 gm Ibuprofen [Motrin] 600 mg PO Q8HR PRN #30 tab 04/26/21 guaiFENesin-DM 600/30MG [Mucinex 2 each PO Q12HR PRN #20 tab 04/26/21 Dm] Amoxicillin 875 mg PO Q12HR #14 tablet 03/19/23 ceFIXime [Suprax] 400 mg PO DAILY #7 capsule 10/15/23 clindamycin HCL 300 mg PO QID #28 cap 10/15/23 Ketorolac [Toradol] 10 mg PO Q8HR #15 tab 02/13/24 levETIRAcetam [Keppra] 250 mg PO Q12HR #14 tablet 02/13/24 Allergies Allergy/AdvReac Type Severity Reaction Status Date / Time sulfamethoxazole Allergy Anaphylaxis Verified 10/15/23 10:40 [From ] trimethoprim [From ] Allergy Anaphylaxis Verified 10/15/23 10:40 Review of Systems ROS Statement: Those systems with pertinent positive or pertinent negative responses have been documented in the HPI. ROS Other: All systems not noted in ROS Statement are negative. Past Medical History Past Medical History: Seizure Disorder Additional Past Medical History / Comment(s): last seizure 8 years ago History of Any Multi-Drug Resistant Organisms: MRSA Date of last positivie culture/infection: 06/17/16 MDRO Source:: Right fourth Finger Past Surgical History: No Surgical Hx Reported Past Anesthesia/Blood Transfusion Reactions: No Reported Reaction Past Psychological History: No Psychological Hx Reported Smoking Status: Current every day smoker Past Alcohol Use History: None Reported Past Drug Use History: None Reported General Exam Limitations: no limitations General appearance: alert, in no apparent distress Head exam: Present: atraumatic, normocephalic, normal inspection Expanded Teeth exam: Present: other (missing teeth) Neck exam: Present: normal inspection. Absent: tenderness, meningismus, lymphadenopathy Respiratory exam: Present: wheezes (diffuse, bilateral), decreased breath sounds. Absent: respiratory distress, rales, rhonchi, stridor Cardiovascular Exam: Present: regular rate, normal rhythm, normal heart sounds. Absent: systolic murmur, diastolic murmur, rubs, gallop, clicks GI/Abdominal exam: Present: soft, normal bowel sounds. Absent: distended, tenderness, guarding, rebound, rigid Extremities exam: Present: normal inspection, full ROM, normal capillary refill. Absent: tenderness, pedal edema, joint swelling, calf tenderness Back exam: Present: normal inspection Neurological exam: Present: alert, oriented X3, CN II-XII intact Course Vital Signs 02/13/24 15:53 Temperature 97.5 F L Pulse Rate 89 Respiratory 18 Rate Blood Pressure 135/78 O2 Sat by Pulse 98 Oximetry Medical Decision Making - Medical Decision Making Was pt. sent in by a medical professional or institution (, PA, SURGICAL SCRUB TECH, urgent care, hospital, or group home...) When possible be specific @ -No Did you speak to anyone other than the patient for history (EMS, parent, family, police, friend...)? What history was obtained from this source @ -No Did you review nursing and triage notes (agree or disagree)? Why? @ -I reviewed and agree with nursing and triage notes Were old charts reviewed (outside hosp., previous admission, EMS record, old EKG, old radiological studies, urgent care reports/EKG's, group home records)? Report findings @ -No old charts were reviewed Differential Diagnosis (chest pain, altered mental status, abdominal pain women, abdominal pain men, vaginal bleeding, weakness, fever, dyspnea, syncope, headache, dizziness, GI bleed, back pain, seizure, CVA, palpatations, mental health, musculoskeletal)? @ -Differential Headache: Migraine, tension, cluster, carbon monoxide, central venous thrombosis, pension karma temporal arteritis, acute closure glaucoma, intercranial hemorrhage, mastoiditis, sinusitis, head injury, this is not meant to be an all-inclusive list. EKG interpreted by me (3pts min.). @ -none X-rays interpreted by me (1pt min.). @ -None done CT interpreted by me (1pt min.). @ -None done U/S interpreted by me (1pt. min.). @ -None done What testing was considered but not performed or refused? (CT, X-rays, U/S, labs)? Why? @ -None What meds were considered but not given or refused? Why? @ -None Did you discuss the management of the patient with other professionals (professionals i.e. , [facility], SURGICAL SCRUB TECH, lab, RT, psych nurse, long term care social worker, mold maker helper, teacher, division officer weapons department, case resource manager)? Give summary @ -No Was smoking cessation discussed for >3mins.? @ -No Was critical care preformed (if so, how long)? @ -No Were there social determinants of health that impacted care today? How? (Homelessness, low income, unemployed, alcoholism, drug addiction, tr ansportation, low edu. Level, literacy, decrease access to med. care, intermediate, rehab)? @ -No Was there de-escalation of care discussed even if they declined (Discuss DNR or withdrawal of care, Hospice)? DNR status @ -No What co-morbidities impacted this encounter? (DM, HTN, Smoking, COPD, CAD, Cancer, CVA, ARF, Chemo, Hep., AIDS, mental health diagnosis, sleep apnea, morbid obesity)? @ -None Was patient admitted / discharged? Hospital course, mention meds given and route, prescriptions, significant lab abnormalities, going to OR and other pertinent info. @ -Discharge. 38-year-old female with headache and for seizure. On evaluation patient she is resting company no signs acute distress. Her vital signs are stable. Patient's neurological examination with no acute deficits. Discussed with patient at bedside there is minimal clinical concern that patient experienced seizure earlier today however she is provided with loading dose of Keppra in addition to migraine cocktail. On reevaluation, patient states that her symptoms have markedly improved and feels comfortable for discharge. Additionally, she is requesting a refill of her Keppra that she used to take but has not take this medication in the past was due to loss of follow-up with neurology. Patient is sent a prescription for Toradol and Keppra instructed to follow-up with neurology and primary care provider within the next week for further evaluation. Discussed with my attending Dr. Barrientos Undiagnosed new problem with uncertain prognosis? @ -No Drug Therapy requiring intensive monitoring for toxicity (Heparin, Nitro, Insulin, Cardizem)? @ -No Were any procedures done? @ -No Diagnosis/symptom? @ -history of seizures, migraine headache Acute, or Chronic, or Acute on Chronic? @ -acute Uncomplicated (without systemic symptoms) or Complicated (systemic symptoms)? @ - uncomplicated Side effects of treatment? @ -No Exacerbation, Progression, or Severe Exacerbation? @ -No Poses a threat to life or bodily function? How? (Chest pain, [place], [place], pneumonia, PE, COPD, DKA, ARF, appy, cholecystitis, CVA, Diverticulitis, Homicidal, Suicidal, threat to staff... and all critical care pts) @ -No - Lab Data Lab Results 02/13/24 02/13/24 Range/Units 16:45 16:51 Urine HCG, Qual Not Detected (Not Detectd) Influenza Type A (PCR) Not Detected (Not Detectd) Influenza Type B (PCR) Not Detected (Not Detectd) RSV (PCR) Not Detected (Not Detectd) SARS-CoV-2 (PCR) Not Detected (Not Detectd) Disposition Clinical Impression: Migraine headache, History of seizure disorder Disposition: HOME SELF-CARE Condition: Good Instructions (If sedation given, give patient instructions): Acute Headache (ED) Additional Instructions: Please return to the Emergency Department if symptoms worsen or any other co ncerns. Prescriptions: levETIRAcetam [Keppra] 250 mg PO Q12HR #14 tablet Ketorolac [Toradol] 10 mg PO Q8HR #15 tab Is patient prescribed a controlled substance at d/c from ED?: No Referrals: None,Stated [Primary Care Provider] - 1-2 days Time of Disposition: 17:51
[2024-02-13] MEDS: SODIUM CHLORIDE 0.9% 1,000 ML IV STA (17:13)
[2024-02-13] MEDS: ACETAMINOPHEN TAB 500 MG TAB PO STA (17:14)
[2024-02-13] MEDS: DEXAMETHASONE SOD PHOSPHATE 10 MG/ML 1 ML VIAL IVP STA (17:15)
[2024-02-13] MEDS: KETOROLAC 15 MG/ML 1 ML VIAL IVP STA (17:15)
[2024-02-13] MEDS: levETIRAcetam IV 500 MG/5 ML VIAL IVP STA (17:16)
[2024-02-13] MEDS: diphenhydrAMINE 50 MG/ML 1 ML VIAL IVP STA (17:16)
== END 2024-02-13 18:41 | disposition home or self-care (01) ==
LOC: EC 15:51
DX: G43.909 Migraine, unspecified, not intractable, without status migrainosus (principal); G40.409 Other generalized epilepsy and epileptic syndromes, not intractable, without status epilepticus; F17.200 Nicotine dependence, unspecified, uncomplicated; Z88.2 Allergy status to sulfonamides; Z88.1 Allergy status to other antibiotic agents
CPT/HCPCS: 81025; 87636; 99283; 96374; 96375 ×3; 96361; J1200; J1100; J1953; J1885

== ENCOUNTER → 2024-02-29 | Outpatient (CLI) | payer MEDICARE, OTHER ==
[2024-02-29 15:13] LABS: Basophils # (A) 0.06 X 10*3/uL (0.00-0.10); Basophils % (A) 0.6 %; Eosinophils # (A) 0.19 X 10*3/uL (0.04-0.35); Eosinophils % (A) 1.9 %; HCT 44.9 % (37.2-46.3); HGB 14.7 g/dL (12.0-15.0); Lymphocytes # (A) 2.59 X 10*3/uL (0.90-5.00); Lymphocytes % (A) 26.1 %; MCHC 32.7 g/dL (32.0-37.0); MCV 97.6 FL (80.0-97.0); Mean Platelet Volume 10.7 FL (9.5-12.2); Monocytes # (A) 0.46 X 10*3/uL (0.20-1.00); Monocytes % (A) 4.6 %; NRBC Per 100 WBC 0 X 10*3/uL (0.00-0.01); Neutrophils # (A) 6.58 X 10*3/uL (1.80-7.70); Neutrophils % (A) 66.3 %; Platelet Count 343 X 10*3/uL (140-440); RDW 12.7 % (11.5-14.5); WBC 9.93 X 10*3/uL (4.50-10.00)
[2024-02-29 15:24] LABS: ALT 28 U/L (8-44); AST 22 U/L (13-35); Albumin 4.4 g/dL (3.8-4.9); Albumin/Globulin Ratio 1.57 Ratio (1.60-3.17); Alkaline Phosphatase 75 U/L (41-126); BUN/Creat Ratio 8.57 Ratio (12.00-20.00); Calcium 9.6 mg/dL (8.7-10.3); Carbon Dioxide 25.6 mmol/L (21.6-31.8); Chloride 102 mmol/L (96-109); Globulin 2.8 g/dL (1.6-3.3); Glucose 93 mg/dL (70-110); Potassium 4.4 mmol/L (3.5-5.5); Sodium 139 mmol/L (135-145); T4, Free (Free Thyroxine) 1.38 ng/dL (0.80-1.80); Total Bilirubin 0.5 mg/dL (0.3-1.2); Total Protein 7.2 g/dL (6.2-8.2)
== END | disposition home or self-care (01) ==
LOC: LABWHC1 11:12
PROVIDERS: ATTEND Family Medicine
DX: E16.2 Hypoglycemia, unspecified (principal); J44.9 Chronic obstructive pulmonary disease, unspecified; R56.9 Unspecified convulsions
CPT/HCPCS: 36415; 80053; 83036; 84439; 84443; 84481; 85025

== ENCOUNTER 2024-07-14 18:58 | Emergency (ER) | payer MEDICARE, OTHER ==
--- NOTE | 2024-07-14 19:38 | ED ---
ENT HPI - General Chief complaint: ENT Stated complaint: Fever, Sore Throat Time Seen by Provider: 07/14/24 19:12 Source: patient, RN notes reviewed Mode of arrival: ambulatory Limitations: no limitations - History of Present Illness Initial comments: This is a 38-year-old female presenting with sore throat (12/21) x 3 days. Patient also endorses fever, congestion as well as nausea/vomiting medicines resolved, starting 5 days ago. Endorses use of ibuprofen with minimal relief. Denies chills, dizziness, dyspnea, chest pain, abdominal pain, diarrhea, hematemesis. MD complaint: sore throat Onset/Timin -: days(s) Location: throat Severity scale (1-10): 9 Quality: burning Consistency: constant Associated Symptoms: fever, other (Nausea/vomiting) - Related Data Previous Rx's Medication Instructions Recorded Albuterol Inhaler [Ventolin Hfa 1 - 2 puff INHALATION Q4-6H PRN #1 10/15/14 Inhaler] inhaler Azithromycin [Zithromax Z-pack (6 0 mg PO DIRECTED #6 tab 10/15/14 tabs)] predniSONE [Deltasone] 60 mg PO DAILY 5 Days tab 10/15/14 Clindamycin [Cleocin] 450 mg PO Q6H 10 Days capsule 06/17/16 Ibuprofen [Motrin] 400 mg PO Q6HR 7 Days tab 06/17/16 traMADol HCL [Ultram] 50 mg PO Q6HR #12 tab 06/17/16 Cyclobenzaprine [Flexeril] 5 mg PO TID PRN #15 tablet 12/17/18 Ibuprofen [Motrin] 600 mg PO Q8HR PRN #30 tab 12/17/18 Albuterol Sulfate [Proair Hfa] 1 - 2 puff INHALATION Q6HR PRN 04/26/21 #8.5 gm Ibuprofen [Motrin] 600 mg PO Q8HR PRN #30 tab 04/26/21 guaiFENesin-DM 600/30MG [Mucinex 2 each PO Q12HR PRN #20 tab 04/26/21 Dm] Amoxicillin 875 mg PO Q12HR #14 tablet 03/19/23 ceFIXime [Suprax] 400 mg PO DAILY #7 capsule 10/15/23 clindamycin HCL 300 mg PO QID #28 cap 10/15/23 Ketorolac [Toradol] 10 mg PO Q8HR #15 tab 02/13/24 levETIRAcetam [Keppra] 250 mg PO Q12HR #14 tablet 02/13/24 Nystatin 100,000 Unit/ml Susp 5 ml PO QID #200 ml 07/14/24 [Mycostatin Oral Susp] Allergies Allergy/AdvReac Type Severity Reaction Status Date / Time sulfamethoxazole Allergy Anaphylaxis Verified 07/14/24 19:11 [From ] trimethoprim [From ] Allergy Anaphylaxis Verified 07/14/24 19:11 Review of Systems ROS Statement: Those systems with pertinent positive or pertinent negative responses have been documented in the HPI. ROS Other: All systems not noted in ROS Statement are negative. Past Medical History Past Medical History: Seizure Disorder Additional Past Medical History / Comment(s): last seizure 8 years ago History of Any Multi-Drug Resistant Organisms: MRSA Date of last positivie culture/infection: 06/17/16 MDRO Source:: Right fourth Finger Past Surgical History: No Surgical Hx Reported Past Anesthesia/Blood Transfusion Reactions: No Reported Reaction Past Psychological History: No Psychological Hx Reported Smoking Status: Current every day smoker Past Alcohol Use History: None Reported Past Drug Use History: None Reported General Exam Limitations: no limitations General appearance: alert, in no apparent distress Head exam: Present: atraumatic, normocephalic, normal inspection Eye exam: Present: normal appearance, PERRL, EOMI. Absent: scleral icterus, conjunctival injection, periorbital swelling ENT exam: Present: mucous membranes moist, TM's normal bilaterally, other (Thrush-like plaques noted over soft palate and oropharynx) Neck exam: Present: normal inspection. Absent: tenderness, meningismus, lymphadenopathy Respiratory exam: Present: wheezes, rhonchi, decreased breath sounds, prolonged expiratory. Absent: respiratory distress, rales, stridor, accessory muscle use Cardiovascular Exam: Present: regular rate, normal rhythm, normal heart sounds. Absent: systolic murmur, diastolic murmur, rubs, gallop, clicks GI/Abdominal exam: Present: soft, normal bowel sounds. Absent: distended, tenderness, guarding, rebound, rigid Extremities exam: Present: normal inspection, full ROM, normal capillary refill. Absent: tenderness, pedal edema, joint swelling, calf tenderness Back exam: Present: normal inspection Neurological exam: Present: alert, oriented X3, CN II-XII intact Psychiatric exam: Present: normal affect, normal mood Skin exam: Present: warm, dry, intact, normal color. Absent: rash Course Vital Signs 07/14/24 07/14/24 07/14/24 19:08 20:43 20:51 Temperature 98.0 F Pulse Rate 98 75 78 Respiratory 15 Rate Blood Pressure 146/91 O2 Sat by Pulse 99 Oximetry 07/14/24 21:06 Temperature 98.1 F Pulse Rate 79 Respiratory 18 Rate Blood Pressure 140/79 O2 Sat by Pulse 98 Oximetry Medical Decision Making - Medical Decision Making Was pt. sent in by a medical professional or institution (, PA, FACILITIES LOCATOR, urgent care, hospital, or long term...) When possible be specific @ -No Did you speak to anyone other than the patient for history (EMS, parent, family, police, friend...)? What history was obtained from this source @ -No Did you review nursing and triage notes (agree or disagree)? Why? @ -I reviewed and agree with nursing and triage notes Were old charts reviewed (outside hosp., previous admission, EMS record, old EKG, old radiological studies, urgent care reports/EKG's, long term records)? Report findings @ -No old charts were reviewed Differential Diagnosis (chest pain, altered mental status, abdominal pain women, abdominal pain men, vaginal bleeding, weakness, fever, dyspnea, syncope, headache, dizziness, GI bleed, back pain, seizure, CVA, palpatations, mental health, musculoskeletal)? @ -Differential Fever: Pneumonia, viral URI, endocarditis, myocarditis, pericarditis, otitis, sinusitis, peritonsillar Abscess, retropharyngeal Abscess, epiglottitis, perit onitis, appendicitis, [place] cystitis, diverticulitis, hepatitis, colitis, UTI, PID, TOA, pyelonephritis, prostatitis, epididymitis, meningitis, encephalitis, pulmonary embolism, CVA, thyroid storm, pancreatitis, adrenal crisis, cavernous sinus thrombosis, this is not meant to be an all-inclusive list. EKG interpreted by me (3pts min.). @ -Not done X-rays interpreted by me (1pt min.). @ -None done CT interpreted by me (1pt min.). @ -None done U/S interpreted by me (1pt. min.). @ -None done What testing was considered but not performed or refused? (CT, X-rays, U/S, labs)? Why? @ -None What meds were considered but not given or refused? Why? @ -None Did you discuss the management of the patient with other professionals (professionals i.e. , PA, FACILITIES LOCATOR, lab, RT, psych nurse, social science instructor, route supervisor, teacher, certification officer, manager case)? Give summary @ -No Was smoking cessation discussed for >3mins.? @ -No Was critical care preformed (if so, how long)? @ -No Were there social determinants of health that impacted care today? How? (Homelessness, low income, unemployed, alcoholism, drug addiction, transportation, low edu. Level, literacy, decrease access to med. care, senior care, rehab)? @ -No Was there de-escalation of care discussed even if they declined (Discuss DNR or withdrawal of care, Hospice)? DNR status @ -No What co-morbidities impacted this encounter? (DM, HTN, Smoking, COPD, CAD, Cancer, CVA, ARF, Chemo, Hep., AIDS, mental health diagnosis, sleep apnea, morbid obesity)? @ -None Was patient admitted / discharged? Hospital course, mention meds given and route, prescriptions, significant lab abnormalities, going to OR and other pertinent info. @ -Cepheid and strep test negative. UA and urine hCG negative. Patient initially provided IM Toradol, p.o. SL Zofran, viscous lidocaine, nystatin mouthwash and DuoNeb treatment. Patient notes some improvement in symptoms. Discharged with Zofran starter pack and advised follow-up with PCP. Nystatin mouthwash sent to patient's pharmacy. Discussed patient with Dr. Rosario. Undiagnosed new problem with uncertain prognosis? @ -No Drug Therapy requiring intensive monitoring for toxicity (Heparin, Nitro, Insulin, Cardizem)? @ -No Were any procedures done? @ -No Diagnosis/symptom? @ -Candidal stomatitis, gastroenteritis Acute, or Chronic, or Acute on Chronic? @ -Acute Uncomplicated (without systemic symptoms) or Complicated (systemic symptoms)? @ -Complicated Side effects of treatment? @ -No Exacerbation, Progression, or Severe Exacerbation? @ -No Poses a threat to life or bodily function? How? (Chest pain, [place], [place], pneumonia, PE, COPD, DKA, ARF, appy, cholecystitis, CVA, Diverticulitis, Homicidal, Suicidal, threat to staff... and all critical care pts) @ -No - Lab Data Lab Results 07/14/24 07/14/24 07/14/24 Range/Units 19:29 19:29 19:56 Urine Color Colorless Urine Appearance Clear (Clear) Urine pH 6.0 (5.0-8.0) Ur Specific [place] 1.001 (1.001-1.035) Urine Protein Negative (Negative) Urine Glucose (UA) Negative (Negative) Urine Ketones Negative (Negative) Urine Blood Negative (Negative) Urine Nitrite Negative (Negative) Urine Bilirubin Negative (Negative) Urine Urobilinogen <2.0 (<2.0) mg/dL Ur Leukocyte Esterase Negative (Negative) Urine HCG, Qual (Not Detectd) Influenza Type A (PCR) Not Detected (Not Detectd) Influenza Type B (PCR) Not Detected (Not Detectd) RSV (PCR) Not Detected (Not Detectd) SARS-CoV-2 (PCR) Not Detected (Not Detectd) Group A Strep (PCR) NOT DETECTED (Not Detectd) 07/14/24 Range/Units 19:56 Urine Color Urine Appearance (Clear) Urine pH (5.0-8.0) Ur Specific [place] (1.001-1.035) Urine Protein (Negative) Urine Glucose (UA) (Negative) Urine Ketones (Negative) Urine Blood (Negative) Urine Nitrite (Negative) Urine Bilirubin (Negative) Urine Urobilinogen (<2.0) mg/dL Ur Leukocyte Esterase (Negative) Urine HCG, Qual Not Detected (Not Detectd) Influenza Type A (PCR) (Not Detectd) Influenza Type B (PCR) (Not Detectd) RSV (PCR) (Not Detectd) SARS-CoV-2 (PCR) (Not Detectd) Group A Strep (PCR) (Not Detectd) Disposition Clinical Impression: Candidal stomatitis, Gastroenteritis Disposition: HOME SELF-CARE Condition: Good Instructions (If sedation given, give patient instructions): Oral Candidiasis (ED), Acute Nausea and Vomiting (ED) Additional Instructions: Follow-up with PCP in the next 24-48 hours. Prescriptions: Nystatin 100,000 Unit/ml Susp [Mycostatin Oral Susp] 5 ml PO QID #200 ml Is patient prescribed a controlled substance at d/c from ED?: No Referrals: Moy Salcido MD [Primary Care Provider] - 1-2 days Time of Disposition: 21:04
[2024-07-14] MEDS: LIDOCAINE VISCOUS 2% 15 ML CUP MUCOUS MEM ONE (19:50)
[2024-07-14] MEDS: KETOROLAC 15 MG/ML 1 ML VIAL IM STA (19:50)
[2024-07-14] MEDS: ONDANSETRON 4 MG ODT STARTER PACK 2 TAB BTL PO STA (19:51)
[2024-07-14] MEDS: ONDANSETRON ODT 4 MG TAB PO STA (19:51)
[2024-07-14 20:20] LABS: Appearance,Urine Clear (Clear); Bilirubin,Urine Negative (Negative); Blood,Urine Negative (Negative); Color,Urine Colorless; Glucose,Urine (UA) Negative (Negative); Ketones,Urine Negative (Negative); Leukocyte Esterase,Urine Negative (Negative); Nitrite,Urine Negative (Negative); Protein,Urine Negative (Negative); Specific Gravity,Urine 1.001 (1.001-1.035); Urobilinogen,Urine <2.0 mg/dL (<2.0)
[2024-07-14 20:21] LABS: Influenza A Not Detected (Not Detectd); Influenza B Not Detected (Not Detectd); RSV Not Detected (Not Detectd)
[2024-07-14] MEDS: NYSTATIN 100,000 UNIT/ML SUSP 500,000 UNIT/5 ML CUP PO STA (20:33)
[2024-07-14] MEDS: IPRATROPIUM-ALBUTEROL 3 ML NEB INHALATION STA (20:43)
[2024-07-14 21:07] VITALS: BP 140/79; PULSE 79; RESP 18; TEMP 98.1
== END 2024-07-14 21:06 | disposition home or self-care (01) ==
LOC: EC 18:58
DX: B37.0 Candidal stomatitis (principal); K52.9 Noninfective gastroenteritis and colitis, unspecified; F17.200 Nicotine dependence, unspecified, uncomplicated; Z88.1 Allergy status to other antibiotic agents; Z88.2 Allergy status to sulfonamides
CPT/HCPCS: 94640; 87651; 81003; 81025; 87636; 99283; 96372; J1885; S0119

== ENCOUNTER 2024-08-02 08:52 | Emergency (ER) | payer MEDICARE, OTHER ==
[2024-08-02 08:55] VITALS: RESP 18
[2024-08-02 10:03] LABS: Influenza A Not Detected (Not Detectd); Influenza B Not Detected (Not Detectd); RSV Not Detected (Not Detectd)
--- NOTE | 2024-08-02 10:09 | XR ---
EXAMINATION TYPE: XR chest 2V DATE OF EXAM: 08/02/2024 9:28 AM COMPARISON: Chest radiographs from 03/19/2023 CLINICAL INDICATION: Female, 38 years old with history of cough, fever; [facility] TECHNIQUE: XR chest 2V Frontal and lateral views of the chest. FINDINGS: Lungs/Pleura: There is no evidence of pleural effusion, focal consolidation, or pneumothorax. Pulmonary vascularity: Unremarkable. Heart/mediastinum: Cardiomediastinal silhouette is unremarkable. Musculoskeletal: No acute osseous pathology. IMPRESSION: No acute cardiopulmonary disease/process. [facility], , 08/02/2024 10:06 AM
--- NOTE | 2024-08-02 10:51 | ED ---
URI HPI - General Chief Complaint: Upper Respiratory Infection Stated Complaint: cough Time Seen by Provider: 08/02/24 08:58 Source: patient, RN notes reviewed Mode of arrival: ambulatory Limitations: no limitations - History of Present Illness Initial Comments: 38-year-old female presents emergency department complaint of cough congestion. Patient states she has asthma she noticed some wheezing. Patient states that she has minimal productive cough. No no sore throat that she has oral candidiasis from her inhaler use. Patient denies any ear pain no abdominal pain tongue complaints. - Related Data Previous Rx's Medication Instructions Recorded Albuterol Inhaler [Ventolin Hfa 1 - 2 puff INHALATION Q4-6H PRN #1 10/15/14 Inhaler] inhaler Azithromycin [Zithromax Z-pack (6 0 mg PO DIRECTED #6 tab 10/15/14 tabs)] predniSONE [Deltasone] 60 mg PO DAILY 5 Days tab 10/15/14 Clindamycin [Cleocin] 450 mg PO Q6H 10 Days capsule 06/17/16 Ibuprofen [Motrin] 400 mg PO Q6HR 7 Days tab 06/17/16 traMADol HCL [Ultram] 50 mg PO Q6HR #12 tab 06/17/16 Cyclobenzaprine [Flexeril] 5 mg PO TID PRN #15 tablet 12/17/18 Ibuprofen [Motrin] 600 mg PO Q8HR PRN #30 tab 12/17/18 Albuterol Sulfate [Proair Hfa] 1 - 2 puff INHALATION Q6HR PRN 04/26/21 #8.5 gm Ibuprofen [Motrin] 600 mg PO Q8HR PRN #30 tab 04/26/21 guaiFENesin-DM 600/30MG [Mucinex 2 each PO Q12HR PRN #20 tab 04/26/21 Dm] Amoxicillin 875 mg PO Q12HR #14 tablet 03/19/23 ceFIXime [Suprax] 400 mg PO DAILY #7 capsule 10/15/23 clindamycin HCL 300 mg PO QID #28 cap 10/15/23 Ketorolac [Toradol] 10 mg PO Q8HR #15 tab 02/13/24 levETIRAcetam [Keppra] 250 mg PO Q12HR #14 tablet 02/13/24 Nystatin 100,000 Unit/ml Susp 5 ml PO QID #200 ml 07/14/24 [Mycostatin Oral Susp] Nystatin 100,000 Unit/ml Susp 5 ml PO QID #200 ml 08/02/24 [Mycostatin Oral Susp] predniSONE 50 mg PO DAILY #5 tab 08/02/24 Allergies Allergy/AdvReac Type Severity Reaction Status Date / Time sulfamethoxazole Allergy Anaphylaxis Verified 08/02/24 08:55 [From ] trimethoprim [From ] Allergy Anaphylaxis Verified 08/02/24 08:55 Review of Systems ROS Statement: Those systems with pertinent positive or pertinent negative responses have been documented in the HPI. ROS Other: All systems not noted in ROS Statement are negative. Past Medical History Past Medical History: Seizure Disorder Additional Past Medical History / Comment(s): last seizure 8 years ago History of Any Multi-Drug Resistant Organisms: MRSA Date of last positivie culture/infection: 06/17/16 MDRO Source:: Right fourth Finger Past Surgical History: No Surgical Hx Reported Past Anesthesia/Blood Transfusion Reactions: No Reported Reaction Past Psychological History: No Psychological Hx Reported Smoking Status: Current every day smoker Past Alcohol Use History: None Reported Past Drug Use History: None Reported General Exam Limitations: no limitations General appearance: alert, in no apparent distress Head exam: Present: atraumatic, normocephalic, normal inspection Eye exam: Present: normal appearance, PERRL, EOMI. Absent: scleral icterus, conjunctival injection, periorbital swelling ENT exam: Present: mucous membranes moist, TM's normal bilaterally, normal external ear exam. Absent: normal oropharynx (Mild white coating of the tongue) Neck exam: Present: normal inspection, full ROM. Absent: tenderness, meningismus, lymphadenopathy Respiratory exam: Present: normal lung sounds bilaterally. Absent: respiratory distress, wheezes, rales, rhonchi, stridor Cardiovascular Exam: Present: regular rate, normal rhythm, normal heart sounds. Absent: systolic murmur, diastolic murmur, rubs, gallop, clicks Course Vital Signs 08/02/24 08/02/24 08:52 09:10 Temperature 98.1 F Pulse Rate 95 Respiratory 18 18 Rate Blood Pressure 133/87 O2 Sat by Pulse 98 Oximetry Medical Decision Making - Medical Decision Making Was pt. sent in by a medical professional or institution (, PA, ORDER PACKER, urgent care, hospital, or skilled nursing...) When possible be specific @ -No Did you speak to anyone other than the patient for history (EMS, parent, family, police, friend...)? What history was obtained from this source @ -No Did you review nursing and triage notes (agree or disagree)? Why? @ -I reviewed and agree with nursing and triage notes Were old charts reviewed (outside hosp., previous admission, EMS record, old EKG, old radiological studies, urgent care reports/EKG's, skilled nursing records)? Report findings @ -No old charts were reviewed Differential Diagnosis (chest pain, altered mental status, abdominal pain women, abdominal pain men, vaginal bleeding, weakness, fever, dyspnea, syncope, headache, dizziness, GI bleed, back pain, seizure, CVA, palpatations, mental health, musculoskeletal)? @ -COVID 19, RSV, influenza, pneumonia, acute bronchitis, URI, this list is not all inclusive EKG interpreted by me (3pts min.). @ -None X-rays interpreted by me (1pt min.). @ -Chest x-ray shows no evidence of infiltrate or consolidation or mass. CT interpreted by me (1pt min.). @ -None done U/S interpreted by me (1pt. min.). @ -None done What testing was considered but not performed or refused? (CT, X-rays, U/S, labs)? Why? @ -None What meds were considered but not given or refused? Why? @ -None Did you discuss the management of the patient with other professionals (professionals i.e. , PA, ORDER PACKER, lab, RT, psych nurse, social human services assistants, burrer marker axle, teacher, infantry officer, case loader operator)? Give summary @ -No Was smoking cessation discussed for >3mins.? @ -No Was critical care preformed (if so, how long)? @ -No Were there social determinants of health that impacted care today? How? (Homelessness, low income, unemployed, alcoholism, drug addiction, transportation, low edu. Level, literacy, decrease access to med. care, intermediate, rehab)? @ -No Was there de-escalation of care discussed even if they declined (Discuss DNR or withdrawal of care, Hospice)? DNR status @ -No What co-morbidities impacted this encounter? (DM, HTN, Smoking, COPD, CAD, Cancer, CVA, ARF, Chemo, Hep., AIDS, mental health diagnosis, sleep apnea, morbid obesity)? @ -None Was patient admitted / discharged? Hospital course, mention meds given and route, prescriptions, significant lab abnormalities, going to OR and other pertinent info. @ -Discharge patient has minimal wheezing with her asthma, viral URI negative Cepheid. Patient was discharged in stable condition return parameters jennifer. Undiagnosed new problem with uncertain prognosis? @ -No Drug Therapy requiring intensive monitoring for toxicity (Heparin, Nitro, Insulin, Cardizem)? @ -No Were any procedures done? @ -No Diagnosis/symptom? @ -Acute, asthma Acute, or Chronic, or Acute on Chronic? @ -Acute Uncomplicated (without systemic symptoms) or Complicated (systemic symptoms)? @ -Uncomplicated Side effects of treatment? @ -No Exacerbation, Progression, or Severe Exacerbation? @ -No Poses a threat to life or bodily function? How? (Chest pain, [place], [place], pneumonia, PE, COPD, DKA, ARF, appy, cholecystitis, CVA, Diverticulitis, Homicidal, Suicidal, threat to staff... and all critical care pts) @ -No - Lab Data Lab Results 08/02/24 Range/Units 09:15 Influenza Type A (PCR) Not Detected (Not Detectd) Influenza Type B (PCR) Not Detected (Not Detectd) RSV (PCR) Not Detected (Not Detectd) SARS-CoV-2 (PCR) Not Detected (Not Detectd) Disposition Clinical Impression: Acute upper respiratory infection, Asthma Disposition: HOME SELF-CARE Condition: Stable Instructions (If sedation given, give patient instructions): Upper Respiratory Infection (ED) Additional Instructions: Please return to the Emergency Department if symptoms worsen or any other concerns. Prescriptions: Nystatin 100,000 Unit/ml Susp [Mycostatin Oral Susp] 5 ml PO QID #200 ml predniSONE 50 mg PO DAILY #5 tab Is patient prescribed a controlled substance at d/c from ED?: No Referrals: Moy Salcido MD [Primary Care Provider] - 1-2 days Time of Disposition: 10:51
[2024-08-02 11:17] VITALS: BP 128/76; PULSE 90; TEMP 98.2
== END 2024-08-02 11:17 | disposition home or self-care (01) ==
LOC: EC 08:52
DX: J06.9 Acute upper respiratory infection, unspecified (principal); J45.909 Unspecified asthma, uncomplicated; F17.200 Nicotine dependence, unspecified, uncomplicated; Z11.52 Encounter for screening for COVID-19; Z88.1 Allergy status to other antibiotic agents; Z88.2 Allergy status to sulfonamides
CPT/HCPCS: 71046; 87636; 99283